=== PATIENT | female | born 1985 | race Caucasian/White ===

== ENCOUNTER 2017-03-04 17:08 | Emergency (ER) | payer BC, MEDICAID ==
[~2017-03-04] VITALS: Ht 172.7 cm; Wt 65.8 kg
[2017-03-04 18:23] LABS: Basophils # (auto) 0 uL; Basophils % (auto) 0.3 % (0.0-2.0); CONDITION Y; Eosinophils # (auto) 0.2 uL; Eosinophils % (auto) 1.5 % (0.0-7.0); Hematocrit 40.2 % (36.0-46.0); Hemoglobin 13.9 g/dL (12.2-16.2); Lymphocytes # (auto) 2.8 uL; Lymphocytes % (auto) 25.2 % (10.0-50.0); Mean Corpuscular Hgb Conc. 34.5 g/dL (32.0-36.0); Mean Corpuscular Volume 92.6 fL (80.0-100.0); Mean Platelet Volume 9.3 fL (7.4-10.4); Monocytes # (auto) 0.8 uL; Monocytes % (auto) 7.6 % (0.0-12.0); Neutrophils # (auto) 7.2 uL; Neutrophils % (auto) 65.4 % (37.0-80.0); Platelet Count (auto) 295 10^3/uL (140-450)
[2017-03-04 18:32] LABS: Albumin 3.9 g/dL (3.4-5.0); BUN/Creatinine Ratio 14.8; Calcium 8.6 mg/dL (8.5-10.1); Potassium 3.4 mmol/L (3.5-5.1)
[2017-03-04 18:35] LABS: Bilirubin, Total 0.2 mg/dL (0.2-1.0)
[2017-03-04 21:04] LABS: Urine Bilirubin Negative (Negative); Urine Color Yellow (Yellow); Urine Glucose Normal (Normal); Urine Mucus FEW (None Seen); Urine Nitrite Negative (Negative); Urine RBC 1 /hpf (0 - 4); Urine Squamous Epithelial Cell FEW /hpf (<5); Urine Urobilinogen Normal (Negative); Urine pH 5.5 (5.0-8.0)
[2017-03-04 21:06] LABS: Urine Blood 2+ /uL (Negative); Urine Ketone 2+ (Negative)
[2017-03-04 21:56] VITALS: BP 124/70
== END 2017-03-04 22:11 | disposition home or self-care (01) ==
LOC: ER 17:12
DX: O20.0 Threatened abortion (principal); O99.331 Smoking (tobacco) complicating pregnancy, first trimester; F17.210 Nicotine dependence, cigarettes, uncomplicated; O99.321 Drug use complicating pregnancy, first trimester; F12.10 Cannabis abuse, uncomplicated; Z3A.01 Less than 8 weeks gestation of pregnancy
CPT/HCPCS: 36415; 76801; 76817; 80053; 81001; 84702; 85025